=== PATIENT | female | born 1980 | race Caucasian/White ===

== ENCOUNTER 2017-07-24 07:16 | Emergency (ER) | payer MEDICAID ==
[~2017-07-24] VITALS: Ht 157.5 cm; Wt 94.0 kg
[2017-07-24 07:18] VITALS: BP 110/71; PULSE 103; RESP 18; O2SAT 98
--- NOTE | 2017-07-24 09:40 | RADRPT ---
EXAM DATE/TIME: 07/24/2017 09:02 [facility] COMPARISON: No previous studies available for comparison. INDICATIONS : Right upper quadrant pain. MEDICAL HISTORY : Hypertension. SURGICAL HISTORY : Thyroidectomy. Tubal ligation. Sinus surgery. ENCOUNTER: Initial ACUITY: 1 day PAIN SCORE: 4/10 LOCATION: Right upper quadrant MEASUREMENTS: LIVER: 18.5 cm length COMMON DUCT: 4 mm RIGHT KIDNEY: 10.6 x 6.5 x 4.5 cm FINDINGS: LIVER: There is increased echogenicity throughout the liver. No dilated biliary ducts. The portal system is patent. There is no evidence of ascites. COMMON DUCT: No intraluminal mass or stone visualized. GALLBLADDER: There is a gallstone in the base of the gallbladder measuring approximately 8 mm x 10 mm. The gallbla dder wall is not thickened. There is no fluid around the gallbladder. PANCREAS: The visualized portions are within normal limits. RIGHT KIDNEY: No evidence of hydronephrosis, stone, or mass. CONCLUSION: 1. There is a gallstone in the gallbladder. No biliary tract obstruction. 2. Diffuse fatty infiltration of the liver. Stevo Boothe MD on July 24, 2017 at 9:37 Board Certified Radiologist. This report was verified electronically.
[2017-07-24] MEDS ORDERED: IOHEXOL 350 MG/ML 10 ML VIAL (for RAD DIAG) IVCONTRAST ONE (10:40)
--- NOTE | 2017-07-24 10:48 | RADRPT ---
EXAM DATE/TIME: 07/24/2017 10:36 [facility] COMPARISON: No previous studies available for comparison. INDICATIONS : Abdominal pain. IV CONTRAST: 96 cc Omnipaque 350 (iohexol) IV ORAL CONTRAST: No oral contrast ingested. RADIATION DOSE: 15.35 CTDIvol (mGy) MEDICAL HISTORY : Hypertension. SURGICAL HISTORY : Tubal ligation. ENCOUNTER: Initial ACUITY: 1 day PAIN SCALE: 8/10 LOCATION: Right upper quadrant abdominal. TECHNIQUE: Volumetric scanning of the abdomen and pelvis was performed. Using automated exposure control and ad justment of the mA and/or kV according to patient size, radiation dose was kept as low as reasonably achievable to obtain optimal diagnostic quality images. DICOM format image data is available electro nically for review and comparison. FINDINGS: LOWER LUNGS: The visualized lower lungs are clear. LIVER: The liver appears to be enlarged measuring 22.9 cm. There is fatty infiltration throughout the liver. No dilated biliary ducts. No evidence of ascites. The portal system is patent. The gallbladder is gr ossly unremarkable. No surrounding inflammatory changes. SPLEEN: Normal size without lesion. PANCREAS: Within normal limits. KIDNEYS: Normal in size and shape. There is no mass, stone or hydronephrosis. ADRENAL GLANDS: Within normal limits. VASCULAR: There is no aortic aneurysm. BOWEL/MESENTERY: The stomach, small bowel, and colon demonstrate no acute abnormality. There is no free intraperitone al air or fluid. No inflammatory changes are demonstrated. ABDOMINAL WALL: Small umbilical hernia containing mesenteric fat. RETROPERITONEUM: There is no lymphadenopathy. BLADDER: No wall thickening or mass. REPRODUCTIVE: There is a small angulated fibroid off the posterior right fundus of the uterus measuring 2.6 cm. The re is a small left ovarian cyst measuring 1.6 cm. INGUINAL: There is no lymphadenopathy or hernia. MUSCULOSKELETAL: There is curvature of the lumbar spine to the left with some degenerative changes. CONCLUSION: 1. Enlarged fatty liver. 2. Pedunculated uterine fibroid on the right side measuring 2.6 cm. 3. Small left ovarian cyst measuring 1.6 cm. 4. Small umbilical hernia containing mesenteric fat. Stevo Boothe MD on July 24, 2017 at 10:42 Board Certified Radiologist. This report was verified electronically.
[2017-07-24] MEDS ORDERED: ZOFR4TAB3 SL (10:52)
[2017-07-24] MEDS ORDERED: TRAM50TA PO (10:52)
--- NOTE | 2017-07-24 10:52 | PD ---
HPI Chief Complaint: Abdominal Pain Time Seen by Provider: 07:47 Travel History International Travel<30 days: No Contact w/Intl Traveler<30days: No Traveled to known affect area: No History of Present Illness HPI This is a 36-year-old female who was received in transfer from our [place] facility who presents to the emergency department with 2 days of right upper quadrant abdominal pain and vomiting. She's never had pain before like this. She was transferred here for an ultrasound of the gallbladder. [facility] Past Medical History Diminished Hearing: No Hypertension: Yes Immunizations Current: Yes Thyroid Disease: Yes Tetanus Vaccination: < 5 Years Influenza Vaccination: Yes ?: Not Tubal Ligation: Yes Past Surgical History Other Surgery: Yes (thyroidectomy, SINUS SURGERY ) Social History Alcohol Use: No Tobacco Use: No Substance Use: No Allergies-Medications (Allergen,Severity, Reaction): Coded Allergies: No Known Allergies (Unverified , 07/24/17) Review of Systems General / Constitutional: No: Fever, Chills Gastrointestinal: Positive: Abdominal Pain Physical Exam Narrative GENERAL: Well-appearing, no acute distress, nontoxic SKIN: Warm and dry. HEAD: Atraumatic. Normocephalic. ENT: No nasal bleeding or discharge. Moist mucous membranes Abdomen: Tender to palpation in the right upper quadrant and right lower quadrants with no rebound or guarding. MUSCULOSKELETAL: No obvious deformities. NEUROLOGICAL: Awake and alert. No obvious cranial nerve deficits. Motor grossly within normal limits. Normal speech. PSYCHIATRIC: Appropriate mood and affect; insight and judgment normal. Data Data Last Documented VS Vital Signs Date Time Temp Pulse Resp B/P (MAP) Pulse Ox O2 Delivery O2 Flow Rate FiO2 07/24/17 07:22 18 07/24/17 07:18 103 110/71 (84) 98 Orders Orders Us Abdomen Gallbladder (07/24/17 ) Ct Abd/Pel W Iv Contrast(Rout) (07/24/17 ) Iohexol 350 Inj (Omnipaque 350 Inj) (07/24/17 10:40) MDM Medical Decision Making Medical Screen Exam Complete: Yes Emergency Medical Condition: Yes Differential Diagnosis Appendicitis, cholelithiasis, cholecystitis Narrative Course This is a 36-year-old female who presents to the emergency department with right upper quadrant abdominal pain. Ultrasound of the gallbladder demonstrates cholelithiasis but no cholecystitis. She doesn't mild leukocytosis but her LFTs are otherwise reassuring. I obtained a CT scan to evaluate for acute appendicitis as she was somewhat tender in the lower abdomen as well. CT scan was reassuring. I think she can follow-up as an outpatient with a general surgeon regarding symptomatic cholelithiasis. Diagnosis Primary Impression: Gallstones Patient Instructions: General Instructions Additional Instructions: If you develop severe or worsening abdominal pain, fever>100.4, persistent vomiting or inability to eat or drink return to the emergency department immediately. Follow-up with a general surgeon to have her gallbladder evaluated and possibly removed. Med/Other Pt SpecificInfo: Prescription(s) given Scripts Ondansetron Odt (Zofran Odt) 4 Mg Tab 4 MG SL Q6HR Y for Nausea/Vomiting, #15 TAB 0 Refills Prov: Deidra Russo MD 07/24/17 Tramadol (Tramadol) 50 Mg Tab 50 MG PO Q6H Y for PAIN, #12 TAB 0 Refills Prov: Deidra Russo MD 07/24/17 Disposition: 01 DISCHARGE HOME Condition: Stable Deidra Russo MD Jul 24, 2017 10:52
[2017-07-24 11:51] LABS: BACTERIA, URINE FEW /hpf; BLOOD, URINE NEG (NEG); COMMENT (UR) CULTURE INDICATED; CULTURE IF INDICATED CULTURE INDICATED; GLUCOSE,URINE NEG (NEG); KETONE, URINE NEG (NEG); MUCUS URINE FEW /lpf (OCC); NITRITE,URINE NEG (NEG); PH, URINE 7.5 (5.0-8.5); SQUAMOUS EPITHELIAL CELL URINE 3 /hpf (0-5); URINE COLOR YELLOW (YELLW/STRAW)
[2017-07-24] MEDS ORDERED: CEPH-460 PO (12:07)
--- NOTE | 2017-07-24 12:08 | PD ---
Data Data Last Documented VS Vital Signs Date Time Temp Pulse Resp B/P (MAP) Pulse Ox O2 Delivery O2 Flow Rate FiO2 07/24/17 07:22 18 07/24/17 07:18 103 110/71 (84) 98 Orders Orders Us Abdomen Gallbladder (07/24/17 ) Ct Abd/Pel W Iv Contrast(Rout) (07/24/17 ) Iohexol 350 Inj (Omnipaque 350 Inj) (07/24/17 10:40) Urinalysis - C+S If Indicated (07/24/17 10:58) Urine Culture (07/24/17 10:40) Labs Laboratory Tests Test 07/24/17 10:40 Urine Color YELLOW Urine Turbidity HAZY Urine pH 7.5 Urine Specific [place] 1.034 Urine Protein 30 mg/dL Urine Glucose (UA) NEG mg/dL Urine Ketones NEG mg/dL Urine Occult Blood NEG Urine Nitrite NEG Urine Bilirubin NEG Urine Urobilinogen 8.0 MG/DL Urine Leukocyte Esterase LARGE Urine RBC 2 /hpf Urine WBC 138 /hpf Urine Squamous Epithelial Cells 3 /hpf Urine Bacteria FEW /hpf Urine Mucus FEW /lpf Microscopic Urinalysis Comment CULTURE INDICATED MDM Supervised Visit with [facility]: No Narrative Course I repeated the urinalysis of the patient that it been performed at [place] because of a large amount of squamous epithelial cells. She continues to have urinary tract infection which is likely contributing to her leukocytosis. She' ll be discharged on antibiotics. Diagnosis Primary Impression: Gallstones Additional Impression: Urinary tract infection Qualified Codes: N30.00 - Acute cystitis without hematuria Referrals: UNKNOWN (PCP) [facility] follow up with [facility] within a week Patient Instructions: General Instructions Departure Forms: Work Release, Tests/Procedures Additional Instruction: If you develop severe or worsening abdominal pain, fever>100.4, persistent vomiting or inability to eat or drink return to the emergency department immediately. Follow-up with a general surgeon to have her gallbladder evaluated and possibly removed. Scripts Cephalexin (Keflex) 500 Mg Cap 500 MG PO Q12H for Infection for 7 Days, #14 CAP 0 Refills Prov: Deidra Russo MD 07/24/17 Ondansetron Odt (Zofran Odt) 4 Mg Tab 4 MG SL Q6HR Y for Nausea/Vomiting, #15 TAB 0 Refills Prov: Deidra Russo MD 07/24/17 Tramadol (Tramadol) 50 Mg Tab 50 MG PO Q6H Y for PAIN, #12 TAB 0 Refills Prov: Deidra Russo MD 07/24/17 Disposition: 01 DISCHARGE HOME Condition: Stable Deidra Russo MD Jul 24, 2017 12:08
[2017-07-24 12:27] VITALS: BP 114/76
== END 2017-07-24 12:30 | disposition home or self-care (01) ==
LOC: NEPC 07:16
DX: K80.20 Calculus of gallbladder without cholecystitis without obstruction (principal); N30.00 Acute cystitis without hematuria; B96.89 Other specified bacterial agents as the cause of diseases classified elsewhere
CPT/HCPCS: 74177; 76705; 80053; 81001; 83690; 85025; 87086; 96374; 96375; 99281; 99285; J1885; J2060; J2765; J7030; Q9967